=== PATIENT | male | born 1985 | race Caucasian/White ===

== ENCOUNTER 2017-09-03 08:20 | Emergency (ER) | payer SELFPAY ==
[2017-09-03 08:26] VITALS: BP 136/82; BMI 30.9
--- NOTE | 2017-09-03 08:58 | DR.GENAD ---
HPI - PCP Primary Care Physician: CARLOS - HPI Comment HPI Comment: HISTORY BELOW. - Complaint/Symptoms Chief Complaint Doctors Comments: MUSCLE PAIN, NAUSEA, VOMITING AND COLD TIMES 3 DAYS. GETTING WORSE. Chief Complaint:: PT STATED FOR THE PAST 3 DAYS HE HAS BEEN NAUSEATED, VOMITING AND COUGHING UP THICK RED STUFF. PT STATED HE ALSO HAD GENERLIZED MUSCLE ACHES - Nurses notes reviewed Nurses Notes Review: Yes - Source History Provided: Patient - Mode of Arrival Mode of Arrival: Ambulatory - Timing Onset of Chief Complaint: 09/01/17 Came on: Suddenly - Duration Duration: Constant Duration: Days - Severity Severity: Moderate PMH - PMH Past Medical History: No Past Surgical History: No - Family History History of Family Medical Conditions: Yes Family Medical History: Diabetes Mellitus, Cancer - Social History Does patient currently use any type of tobacco product: No Have you used tobacco products in the last 12 months: No Type of Tobacco Use: None Does any household member use tobacco: Yes Alcohol Use: Rarely Do you use any recreational Drugs:: No Lives With: Family Lives Where: Home - infectious screening In the last 2 months have you had wt loss of >10#?: NO Have you had fever, night sweats or hemotysis?: No Have you traveled outside the country in the last 6 months?: No Isolation: Standard ROS - Review of Systems Constitutional: Weakness, Fatigue. negative: Chills, Fever Eyes: No Symptoms Reported. negative: Eye Pain ENTM: No Symptoms Reported, Nose Discharge, Nose Congestion, Throat Pain. negative: Ear Pain Respiratoy: Productive Cough Cardiovascular: No Symptoms Reported Gastrointestinal/Abdominal: Nausea, Vomiting. negative: Abdominal Pain Genitourinary: No Symptoms Reported Neurological: No Symptoms Reported Musculoskeletal: Muscle Pain Integumentary: No Symptoms Reported Hematologic/Lymphatic: No Symptoms Reported Endocrine: No Symptoms Reported All Other Systems: Reviewed and Negative PE - Vital Signs Vitals: Temperature 101.0 F Pulse Rate 125 Respiratory Rate 16 Blood Pressure 136/82 O2 Sat by Pulse Oximetry 98 - General Limitations: No Limitations General Appearance: Alert - Head Head Exam: Normal Inspection - Eyes Eye exam: Normal Appearance - ENT ENT Exam: Normal External Ear Exam External Ear Exam: Normal External Inspection TM/Canal Exam: Bilateral Bulging Nose Exam: Normal Nose Exam, Sinus Tenderness Mouth Exam: Normal Inspection Throat Exam: Tonsillar Erythema - Neck Neck Exam: Trachea Midline - Chest Chest Inspection: Symmetric Chest Wall Rise - Respiratory Respiratory Exam: Normal Lung Sounds Bilat Respiratory Exam: Bilateral Rhonchi, Lower Rhonchi - Cardiovascular Cardiovascular Exam: Regular Rate, Normal Rhythm, Normal Heart Sounds - Abdominal Exam Abdominal Exam: Normal Bowel Sounds, Soft. negative: Tenderness - Extremities Extremities Exam: Normal Inspection - Back Back Exam: Normal Inspection - Neurologic Neurological Exam: Alert, Oriented X3 - Psychiatric Psychiatric Exam: Normal Affect, Normal Mood - Skin Skin Exam: Normal Color MDM - Differential Diagnosis Differential Diagnosis: SINUSITIS, BRONCHITIS, PNEUMONIA, GASTROENTERITIS, UTI Course - Treatment Treatment: SEE ORDERS. - Education/Counseling Education/Counseling: Patient, Education Educated On: Treatment, Needs for Follow Up ROR - Labs Reviewed Laboratory Results Reviewed?: Yes Result Diagrams: 09/03/17 09:09 09/03/17 09:09 Laboratory: WBC 12.2 X10^3/uL (3.6-10.0) H 09/03/17 09:09 RBC 6.35 X10^6/uL (4.7-6.0) H 09/03/17 09:09 Hgb 17.8 g/dL (13.5-18.0) 09/03/17 09:09 Hct 52.0 % (42.0-54.0) 09/03/17 09:09 MCV 81.8 fL (80.0-100.0) 09/03/17 09:09 MCH 28.0 pg (27.0-34.0) 09/03/17 09:09 MCHC 34.3 g/dL (33.0-35.0) 09/03/17 09:09 RDW 13.7 % (11.6-16.5) 09/03/17 09:09 Plt Count 197 X10^3/uL (150.0-450.0) 09/03/17 09:09 MPV 7.9 fL (7.4-11.0) 09/03/17 09:09 Neut % 80.3 % (42.0-75.0) H 09/03/17 09:09 Lymph % 8.6 % (21.0-51.0) L 09/03/17 09:09 Roberts % 10.9 % (0.0-13.0) 09/03/17 09:09 Eos % 0.0 % (0.9-2.9) L 09/03/17 09:09 Baso % 0.2 % (0.2-1.0) 09/03/17 09:09 Neut # 9.8 x10^3/uL (2.2-4.8) H 09/03/17 09:09 Lymph # 1.0 X10^3/uL (1.3-2.9) L 09/03/17 09:09 Roberts # 1.3 x10^3/uL (0.3-0.8) H 09/03/17 09:09 Eos # 0.0 x10^3/uL (0.0-0.2) 09/03/17 09:09 Baso # 0.0 X10^3/uL (0.0-0.1) 09/03/17 09:09 Absolute Nucleated RBC 0.0 /100WBC 09/03/17 09:09 Sodium 134 mmol/L (136-145) L 09/03/17 09:09 Corrected Sodium 134 mmol/L (136-145) L 09/03/17 09:09 Potassium 4.2 mmol/L (3.5-5.1) 09/03/17 09:09 Chloride 97 mmol/L (98-107) L 09/03/17 09:09 Carbon Dioxide 29.4 mmol/L (21-32) 09/03/17 09:09 BUN 15 mg/dL (7-18) 09/03/17 09:09 Creatinine 1.13 mg/dL (0.70-1.30) 09/03/17 09:09 Est GFR (MDRD) Af Amer > 60 (>60) 09/03/17 09:09 Est GFR (MDRD) Non-Af > 60 (>60) 09/03/17 09:09 Glucose 118 mg/dL (65-99) H 09/03/17 09:09 Calcium 8.9 mg/dL (8.5-10.1) 09/03/17 09:09 Corrected Calcium TNP 09/03/17 09:09 Total Bilirubin 0.30 mg/dL (0.2-1.0) 09/03/17 09:09 AST 27 Units/L (15-37) 09/03/17 09:09 ALT 42 Units/L (12-78) 09/03/17 09:09 Alkaline Phosphatase 90 Units/L (46-116) 09/03/17 09:09 Total Protein 8.0 g/dL (6.4-8.2) 09/03/17 09:09 Albumin 3.6 g/dL (3.4-5.0) 09/03/17 09:09 Globulin 4.4 g/dL (2.5-4.5) 09/03/17 09:09 Albumin/Globulin Ratio 0.8 Ratio (1.1-2.1) L 09/03/17 09:09 Amylase 35 Units/L (25-115) 09/03/17 09:09 Lipase 86 Units/L (73-393) 09/03/17 09:09 Specimen Type Clean catch urine 09/03/17 09:37 Urine Color Yellow (YELLOW) 09/03/17 09:37 Urine Appearance Clear (CLEAR) 09/03/17 09:37 Urine pH 6.0 (5.0 - 8.0) 09/03/17 09:37 Ur Specific [place] 1.015 (1.000-1.030) 09/03/17 09:37 Urine Protein 2+ (NEGATIVE) 09/03/17 09:37 Urine Glucose (UA) Negative (NEGATIVE) 09/03/17 09:37 Urine Ketones Negative (NEGATIVE) 09/03/17 09:37 Urine Occult Blood 1+ (NEGATIVE) 09/03/17 09:37 Urine Nitrite Negative (NEGATIVE) 09/03/17 09:37 Urine Bilirubin Negative (NEGATIVE) 09/03/17 09:37 Urine Urobilinogen Normal (NORMAL) 09/03/17 09:37 Ur Leukocyte Esterase Negative (NEGATIVE) 09/03/17 09:37 Urine RBC 0-1 /HPF (NEGATIVE) 09/03/17 09:37 Urine WBC 0-1 /HPF (NEGATIVE) 09/03/17 09:37 Ur Squamous Epith Cells Negative /HPF (NEGATIVE) 09/03/17 09:37 Urine Bacteria Negative /HPF (NEGATIVE) 09/03/17 09:37 Urine Mucus Rare /HPF (NEGATIVE) 09/03/17 09:37 Ur Culture Indicated? No/not indicated 09/03/17 09:37 - XRAY XRAY Interpreted by: Radiologist XRAY Findings: REPORT DISCUSS WITH PATIENT. - Diagnosis Discharge Problem: Gastroenteritis, Bronchitis - Discharge Plan Disposition: 01 HOME, SELF-CARE Condition: Stable Prescriptions: Amoxicillin [Amoxil 875 mg] 875 mg PO Q12H PRN #15 tab PRN Reason: Diphenoxylate/Atropine [Lomotil] 1 tab PO TID PRN #15 tab PRN Reason: Ondansetron [Zofran ODT 8 mg] 8 mg PO Q8H PRN #12 tab PRN Reason: Nausea/Vomiting - Follow ups/Referrals Follow ups/Referrals: [facility],None [Primary Care Provider] - 3 days - Instructions Instructions: Viral Gastroenteritis, Adult, [id number], Acute Bronchitis, [id number]
[2017-09-03 09:26] LABS: BASOPHILS % (AUTO) 0.2 % (0.2-1.0); HEMOGLOBIN 17.8 g/dL (13.5-18.0); LYMPHOCYTES % (AUTO) 8.6 % (21.0-51.0); MEAN CORPUSCULAR HGB CONC 34.3 g/dL (33.0-35.0); MEAN CORPUSCULAR VOLUME 81.8 fL (80.0-100.0); MEAN PLATELET VOLUME 7.9 fL (7.4-11.0); MONOCYTES # (AUTO) 1.3 x10^3/uL (0.3-0.8); MONOCYTES % (AUTO) 10.9 % (0.0-13.0); NEUTROPHILS # (AUTO) 9.8 x10^3/uL (2.2-4.8); NEUTROPHILS % (AUTO) 80.3 % (42.0-75.0); PLATELET COUNT 197 X10^3/uL (150.0-450.0); RED BLOOD COUNT 6.35 X10^6/uL (4.7-6.0); RED CELL DISTRIBUTION WIDTH 13.7 % (11.6-16.5); WHITE BLOOD COUNT 12.2 X10^3/uL (3.6-10.0)
[2017-09-03 09:32] LABS: ALANINE AMINOTRANSFERASE 42 Units/L (12-78); ALBUMIN 3.6 g/dL (3.4-5.0); ALKALINE PHOSPHATASE 90 Units/L (46-116); AMYLASE 35 Units/L (25-115); ASPARTATE AMINO TRANSFERASE 27 Units/L (15-37); BLOOD UREA NITROGEN 15 mg/dL (7-18); CALCIUM 8.9 mg/dL (8.5-10.1); CARBON DIOXIDE 29.4 mmol/L (21-32); CHLORIDE 97 mmol/L (98-107); COR NA(FOR HYPERGLY) 134 mmol/L (136-145); CREATININE 1.13 mg/dL (0.70-1.30); LIPASE 86 Units/L (73-393); SODIUM 134 mmol/L (136-145); eGFR BLACK RACES > 60 (>60); eGFR NON BLACK RACES > 60 (>60)
--- NOTE | 2017-09-03 09:32 | RAD ---
HISTORY: Abdominal pain, vomiting Study: Flat and upright abdomen, PA chest Comparison: None Findings: The abdominal gas pattern is nonspecific and nonobstructive. No pneumoperitoneum is identified. No ab normal masses or abnormal calcifications are identified. The chest is clear. IMPRESSION: Unremarkable abdominal series Reported By:
[2017-09-03 09:49] LABS: BILIRUBIN,URINE NEGATIVE (NEGATIVE); BLOOD/HEMOGLOBIN,URINE 1+ (NEGATIVE); GLUCOSE, URINE NEGATIVE (NEGATIVE); KETONES,URINE NEGATIVE (NEGATIVE); LEUKOCYTE ESTERASE ,URINE NEGATIVE (NEGATIVE); NITRITES,URINE NEGATIVE (NEGATIVE); PROTEIN,URINE 2+ (NEGATIVE); UROBILINOGEN,URINE NORMAL (NORMAL)
[2017-09-03 10:03] LABS: APPEARANCE,URINE CLEAR (CLEAR); COLOR,URINE YELLOW (YELLOW)
[2017-09-03 10:04] LABS: BACTERIA,URINE NEGATIVE /HPF (NEGATIVE); RBC,URINE 0-1 /HPF (NEGATIVE); SQUAMOUS EPITHELIAL CELL,UR NEGATIVE /HPF (NEGATIVE)
[2017-09-03 10:05] LABS: MUCUS,URINE RARE /HPF (NEGATIVE)
== END 2017-09-03 10:38 | disposition home or self-care (01) ==
LOC: ER 08:36
DX: K52.89 Other specified noninfective gastroenteritis and colitis (principal); J40 Bronchitis, not specified as acute or chronic
CPT/HCPCS: 36415; 74022; 80053; 81001; 82150; 83690; 85025; 99282